=== PATIENT | male | born 1980 | race Caucasian/White ===

== ENCOUNTER 2017-09-26 12:50 | Emergency (ER) | payer OTHER ==
[2017-09-26 12:57] VITALS: BP 131/78; PULSE 54; RESP 16; TEMP 98.2; O2SAT 98
--- NOTE | 2017-09-26 13:07 | EDPHY ---
H & P Stated Complaint: redness irritation r eye x 2 days Time Seen by Provider: 09/26/17 13:06 HPI/ROS: Chief Complaint: Right eye redness and irritation HPI: The patient presents to the ED with a 2 day history of right eye redness and irritation. The patient denies any visual acuity changes. He was working with some tile earlier in the week but denied an obvious sensation of a foreign body during that episode. The patient denies significant past medical history. He has had no infectious symptoms. He denies additional complaints. REVIEW OF SYSTEMS: Neuro: no headache, numbness, weakness Musculoskeletal: as above Skin: no abrasion or lacerations - Personal History Current Tetanus/Diphtheria Vaccine: Yes - Medical/Surgical History Hx Asthma: No Hx Chronic Respiratory Disease: No Hx Diabetes: No Hx Cardiac Disease: No Hx Renal Disease: No Hx Cirrhosis: No Hx Alcoholism: No Hx HIV/AIDS: No Hx Splenectomy or Spleen Trauma: No Other PMH: denies - Social History Smoking Status: Never smoked - Physical Exam Exam: Visual Acuity: noted from Nurse's notes. Pupils: equal round and reactive to light EOMI Skin: no proptosis, no periorbital erythema or swelling, no vesicles Conjunctivae: Conjunctival injection on the right eye, no discharge Cornea: exam with fluorescein shows no no corneal abrasion, no obvious foreign body Anterior chamber: normal, no hyphema or hypopyon Constitutional: Initial Vital Signs Temperature (C) 36.8 C 09/26/17 12:55 Heart Rate 54 L 09/26/17 12:55 Respiratory Rate 16 09/26/17 12:55 Blood Pressure 131/78 H 09/26/17 12:55 O2 Sat (%) 98 09/26/17 12:55 O2 Delivery Mode Room Air Allergies/Adverse Reactions: No Known Allergies Allergy (Verified 09/26/17 12:54) Home Medications: Medication Instructions Recorded NK [No Known Home Meds] 09/26/17 Medical Decision Making ED Course/Re-evaluation: The patient presents to the ED with a foreign body sensation and conjunctival injection his right eye. Fluorescein examination demonstrates no obvious corneal abrasion or ulcer. The patient has no hypopyon or hyphema. The patient will be started on Ocuflox eyedrops. I have asked him to follow up with our on-call key punch operator tomorrow for any ongoing symptoms. Departure - Departure Disposition: Home, Routine, Self-Care Clinical Impression: Conjunctivitis Condition: Good Instructions: Conjunctivitis (ED) Additional Instructions: 1. Please follow up with the key punch operator you have been referred to for recheck tomorrow for any ongoing symptoms by pain or discomfort. 2. Please take antibiotic drop 5 times a day for next week as directed. Referrals: Jan Richards MD [Medical Doctor] - As per Instructions
[2017-09-26] MEDS ORDERED: PROPARACAINE 0.5% 15 ML OPHT DROP OP ONE (13:20)
[2017-09-26] MEDS ORDERED: FLUORESCEIN SODIUM 1 MG STRIP OP ONE ×4 (13:22→13:35)
[2017-09-26] MEDS ORDERED: PROPARACAINE 0.5% 15 ML OPHT DROP ONE (13:34)
[2017-09-26] MEDS ORDERED: OFLOXACIN 0.3% SOLN PREPACK OPHT.BTL TAKEHOME ONE (13:44)
== END 2017-09-26 14:11 | disposition home or self-care (01) ==
DX: H10.9 Unspecified conjunctivitis (principal)